=== PATIENT | male | born 1975 | race American Indian/Alaskan Native ===

== ENCOUNTER 2016-10-26 10:28 | Outpatient (CLI) | payer MEDICAID ==
--- NOTE | 2016-10-26 12:45 | Magnetic Resonance Report ---
MR ABDOMEN WITH AND WITHOUT CONTRAST MR PELVIS WITH AND WITHOUT CONTRAST HISTORY: Cyst of kidney. TECHNIQUE: Multiple T1 and T2-weighted images before and after IV gadolinium. COMPARISON: None at this facility. FINDINGS: Both kidneys are normal size, contour and position. Within the mid left kidney, there is a lobulated cyst measuring 3.0 x 3.4 x 3.2 cm. There is at least one thin internal septation. This may represent multiple adjacent smaller cysts. There is no evidence for calcifications or soft tissue component or enhancement following IV gadolinium. There is an additional 1 cm simple cyst in the superior right kidney. 1 or 2 tiny simple cysts are noted in the left kidney measuring less than 5 mm. No suspicious renal mass is appreciated. The ureters are normal course and caliber. Normal bladder and prostate gland. MR signal characteristics of the liver, biliary system, pancreas, spleen, adrenal glands, aorta and bowel loops are within normal limits. There is no evidence for ascites, adenopathy, inflammatory changes or bone lesion. IMPRESSION: Bilateral renal cysts as described. The largest cyst is in the mid right kidney and is consistent with a Bosniak type II cyst. Consider surveillance.
== END 2016-10-26 10:29 | disposition home or self-care (01) ==
LOC: MRI 10:28
PROVIDERS: ATTEND Urology
DX: N28.1 Cyst of kidney, acquired (principal)
CPT/HCPCS: 72197; 74183; A9577